=== PATIENT | male | born 2000 | race Caucasian/White ===

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

== ENCOUNTER 2020-05-05 07:52 | Emergency (ER) | payer OTHER, SELFPAY ==
--- NOTE | 2020-05-05 11:32 | RAD ---
PORTABLE CHEST: INDICATION: Cough and fever. COMPARISON: 12/31/2015. FINDINGS: The lungs appear clear. No infiltrate. Heart and mediastinum unremarkable. No interval change seen . IMPRESSION: No acute process. POS: [facility]
[2020-05-06 12:33] LABS: SARS-CoV-2 MS2 Positive; SARS-CoV-2 N Gene Negative; SARS-CoV-2 S Gene Negative; SARS-CoV-2 by NAA Not Detected (NotDetected); SARS-CoV-2 orf1ab Negative
== END 2020-05-05 10:08 | disposition home or self-care (01) ==
LOC: ERS 07:52
DX: J06.9 Acute upper respiratory infection, unspecified (principal); Z20.828 Contact with and (suspected) exposure to other viral communicable diseases; F17.220 Nicotine dependence, chewing tobacco, uncomplicated
CPT/HCPCS: 71045; 87635; 93005; U0003

== ENCOUNTER 2020-11-11 11:43 | Emergency (ER) | payer OTHER | END 2020-11-11 14:06 | disposition home or self-care (01) | LOC: ERS 11:43 | DX: J06.9 Acute upper respiratory infection, unspecified (principal); F17.220 Nicotine dependence, chewing tobacco, uncomplicated | CPT/HCPCS: 71045 ==